=== PATIENT | female | born 1940 | race Caucasian/White ===

== ENCOUNTER 2017-09-12 11:28 | Inpatient (IN) | payer OTHER ==
[~2017-09-12] VITALS: Ht 177.8 cm; Wt 79.5 kg
[2017-09-12 12:23] LABS: BASOPHILS 0.5 % (0-2); EOSINOPHILS 0.9 % (0-7); HEMATOCRIT 45.8 % (36.0-48.0); IMMATURE GRANULOCYTES 0.3 % (0-5); LYMPHOCYTES 19.4 % (15-50); MCH 31.1 pg (26.0-34.0); MCHC 32.8 g/dL (31.0-37.0); MEAN PLATELET VOLUME 10.7 fL (7.4-10.4); MONOCYTES 8.9 % (2-11); PLATELET COUNT 193 10x3/uL (130-400); RBC 4.82 10x6/uL (4.00-5.40); RDW 13.8 % (11.5-14.5); WBC 5.9 10x3/uL (4.8-10.8)
[2017-09-12 12:31] LABS: INR 2.98 (0.85-1.17); PROTIME 30.2 SECONDS (11.6-15.0)
[2017-09-12 12:40] LABS: ALBUMIN 3.4 g/dL (3.4-5.0); ALKALINE PHOSPHATASE 65 U/L (46-116); ALT (SGPT) 24 U/L (10-68); CALC OSMOLALITY 276 mosm/kg (275-300); CALCIUM 9.4 mg/dL (8.5-10.1); CARBON DIOXIDE 23.2 mmol/L (21.0-32.0); CHLORIDE - SERUM 105 mmol/L (98-107); CREATININE - SERUM 0.7 mg/dL (0.6-1.3); GLUCOSE 102 mg/dL (74-106); PROTEIN - SERUM 6.8 g/dL (6.4-8.2); SODIUM 139 mmol/L (136-145); UREA NITROGEN 10 mg/dL (7-18); eGFR NON AFRICAN AMERICAN 86 mL/min (90-120)
[2017-09-12 12:52] LABS: APPEARANCE CLEAR (CLEAR); BILIRUBIN NEGATIVE (NEGATIVE); COLOR YELLOW (YELLOW); GLUCOSE NEGATIVE (NEGATIVE); KETONE MODERATE mg/dL (NEGATIVE); NITRITE NEGATIVE (NEGATIVE); PROTEIN NEGATIVE (NEGATIVE); UROBILINOGEN NORMAL (NORMAL)
[2017-09-12 12:54] LABS: BACTERIA FEW /hpf (NONE SEEN); HYALINE CAST RARE /lpf (NONE SEEN); MUCUS <1+ /lpf (NONE SEEN); RED CELLS - URINE OCC /hpf (0-5); YEAST OCC /hpf (NONE SEEN)
[2017-09-12 12:54] LABS: CREATINE KINASE 133 UL (21-215); LIPASE 100 U/L (73-393); MAGNESIUM - SERUM 1.4 mg/dL (1.8-2.4); PRO BNP 235 pg/mL (0-450)
[2017-09-12 12:55] LABS: TROPONIN-I < 0.017 ng/mL (0.000-0.060)
[2017-09-12] MEDS ORDERED: SYNTHROID137 MCG PO (22:35)
[2017-09-12] MEDS ORDERED: COUMADIN2.5 MG PO (22:36)
[2017-09-12] MEDS ORDERED: K-TAB10 MEQ PO (22:37)
[2017-09-12] MEDS ORDERED: PROBIOTIC1 EAC1 PO (22:38)
[2017-09-12] MEDS ORDERED: CYCLOBENZAPRINE10 MG PO (22:39)
[2017-09-12] MEDS ORDERED: CALCIUM 600 +1 EAC3 PO (22:40)
[2017-09-12 22:51] VITALS: BP 147/59; Ht 177.8 cm; Wt 79.5 kg
[2017-09-12 23:29] VITALS: BP 147/59
[2017-09-13] MEDS ORDERED: BETAPACE 120 M120 MG PO (00:42)
[2017-09-13 04:22] VITALS: BP 116/59
[2017-09-13 05:29] LABS: BASOPHILS 0.4 % (0-2); EOSINOPHILS 0.9 % (0-7); HEMATOCRIT 41.4 % (36.0-48.0); HEMOGLOBIN 13.6 g/dL (12-16); IMMATURE GRANULOCYTES 0.4 % (0-5); LYMPHOCYTES 19.9 % (15-50); MCH 30.9 pg (26.0-34.0); MCHC 32.9 g/dL (31.0-37.0); MCV 94.1 fL (80.0-100.0); MONOCYTES 11.7 % (2-11); NEUTROPHILS 66.7 % (40-80); PLATELET COUNT 159 10x3/uL (130-400); RDW 13.4 % (11.5-14.5); WBC 4.5 10x3/uL (4.8-10.8)
[2017-09-13 06:32] LABS: ALBUMIN 2.7 g/dL (3.4-5.0); ALKALINE PHOSPHATASE 58 U/L (46-116); ALT (SGPT) 23 U/L (10-68); CALCIUM 8.4 mg/dL (8.5-10.1); CHLORIDE - SERUM 111 mmol/L (98-107); CREATININE - SERUM 0.7 mg/dL (0.6-1.3); GLUCOSE 112 mg/dL (74-106); PROTEIN - SERUM 5.6 g/dL (6.4-8.2); SODIUM 144 mmol/L (136-145); eGFR NON AFRICAN AMERICAN 86 mL/min (90-120)
[2017-09-13 06:36] LABS: CALC OSMOLALITY 284 mosm/kg (275-300); POTASSIUM - SERUM 3.2 mmol/L (3.5-5.1); UREA NITROGEN 5 mg/dL (7-18)
[2017-09-13 09:30] VITALS: BP 134/71
[2017-09-13 10:53] LABS: ALBUMIN 2.7 g/dL (3.4-5.0); ALKALINE PHOSPHATASE 58 U/L (46-116); ALT (SGPT) 26 U/L (10-68); CALC OSMOLALITY 280 mosm/kg (275-300); CALCIUM 8.3 mg/dL (8.5-10.1); CARBON DIOXIDE 21.3 mmol/L (21.0-32.0); CHLORIDE - SERUM 111 mmol/L (98-107); CREATININE - SERUM 0.6 mg/dL (0.6-1.3); GLUCOSE 89 mg/dL (74-106); PROTEIN - SERUM 5.6 g/dL (6.4-8.2); SODIUM 143 mmol/L (136-145); UREA NITROGEN 5 mg/dL (7-18); eGFR NON AFRICAN AMERICAN > 90 mL/min (90-120)
[2017-09-13 10:58] LABS: POTASSIUM - SERUM 5.1 mmol/L (3.5-5.1)
[2017-09-13 13:40] VITALS: BP 139/71
[2017-09-13] MEDS ORDERED: FLAGYL500 MG PO (13:42)
[2017-09-13] MEDS ORDERED: CIPRO500 MG PO (13:42)
[2017-09-13 16:00] VITALS: BP 121/70
[2017-09-13 20:00] VITALS: BP 119/60
[2017-09-14 05:19] LABS: BASOPHILS 0.5 % (0-2); EOSINOPHILS 1.2 % (0-7); HEMATOCRIT 41.9 % (36.0-48.0); HEMOGLOBIN 13.6 g/dL (12-16); IMMATURE GRANULOCYTES 0.2 % (0-5); LYMPHOCYTES 20.8 % (15-50); MCH 30.5 pg (26.0-34.0); MCHC 32.5 g/dL (31.0-37.0); MCV 93.9 fL (80.0-100.0); MEAN PLATELET VOLUME 10.8 fL (7.4-10.4); MONOCYTES 10.1 % (2-11); NEUTROPHILS 67.2 % (40-80); PLATELET COUNT 176 10x3/uL (130-400); RBC 4.46 10x6/uL (4.00-5.40); RDW 13.7 % (11.5-14.5)
[2017-09-14 05:26] LABS: WBC 5.7 10x3/uL (4.8-10.8)
[2017-09-14 05:49] LABS: ALBUMIN 2.8 g/dL (3.4-5.0); ALKALINE PHOSPHATASE 58 U/L (46-116); ALT (SGPT) 23 U/L (10-68); CALC OSMOLALITY 282 mosm/kg (275-300); CALCIUM 8.3 mg/dL (8.5-10.1); CARBON DIOXIDE 21.9 mmol/L (21.0-32.0); CHLORIDE - SERUM 110 mmol/L (98-107); CREATININE - SERUM 0.7 mg/dL (0.6-1.3); GLUCOSE 85 mg/dL (74-106); PROTEIN - SERUM 5.2 g/dL (6.4-8.2); SODIUM 144 mmol/L (136-145); UREA NITROGEN 5 mg/dL (7-18); eGFR NON AFRICAN AMERICAN 86 mL/min (90-120)
[2017-09-14 05:52] LABS: POTASSIUM - SERUM 3.2 mmol/L (3.5-5.1)
[2017-09-14 09:27] VITALS: BP 149/71; BP 158/66
[2017-09-14 10:58] LABS: ALBUMIN 2.8 g/dL (3.4-5.0); ALKALINE PHOSPHATASE 61 U/L (46-116); ALT (SGPT) 24 U/L (10-68); CALC OSMOLALITY 281 mosm/kg (275-300); CALCIUM 8.5 mg/dL (8.5-10.1); CARBON DIOXIDE 22.5 mmol/L (21.0-32.0); CHLORIDE - SERUM 110 mmol/L (98-107); CREATININE - SERUM 0.6 mg/dL (0.6-1.3); GLUCOSE 120 mg/dL (74-106); PROTEIN - SERUM 5.7 g/dL (6.4-8.2); SODIUM 142 mmol/L (136-145); UREA NITROGEN 6 mg/dL (7-18); eGFR NON AFRICAN AMERICAN > 90 mL/min (90-120)
[2017-09-14 11:00] LABS: POTASSIUM - SERUM 4.9 mmol/L (3.5-5.1)
[2017-09-14] MEDS ORDERED: LOPERAMIDE HCL2 MG PO (11:57)
[2017-09-14] MEDS ORDERED: QUESTRAN PACK4 G/PKT PO (11:57)
[2017-09-14] MEDS ORDERED: FLAGYL500 MG PO (13:18)
[2017-09-14] MEDS ORDERED: CIPRO500 MG PO (13:18)
[2017-09-14 13:40] VITALS: BP 133/66
[2017-09-14 20:00] VITALS: BP 147/63
[2017-09-15 04:00] VITALS: BP 118/62
[2017-09-15 05:43] LABS: BASOPHILS 0.3 % (0-2); EOSINOPHILS 1.5 % (0-7); HEMATOCRIT 46.1 % (36.0-48.0); HEMOGLOBIN 15.1 g/dL (12-16); IMMATURE GRANULOCYTES 0.3 % (0-5); MCH 30.9 pg (26.0-34.0); MCHC 32.8 g/dL (31.0-37.0); MCV 94.3 fL (80.0-100.0); MEAN PLATELET VOLUME 11.1 fL (7.4-10.4); MONOCYTES 9.4 % (2-11); NEUTROPHILS 69.5 % (40-80); PLATELET COUNT 189 10x3/uL (130-400); RBC 4.89 10x6/uL (4.00-5.40); WBC 6.8 10x3/uL (4.8-10.8)
[2017-09-15 06:05] LABS: ALKALINE PHOSPHATASE 69 U/L (46-116); ALT (SGPT) 25 U/L (10-68); CALC OSMOLALITY 283 mosm/kg (275-300); CALCIUM 9.2 mg/dL (8.5-10.1); CARBON DIOXIDE 24.8 mmol/L (21.0-32.0); CHLORIDE - SERUM 108 mmol/L (98-107); CREATININE - SERUM 0.7 mg/dL (0.6-1.3); GLUCOSE 99 mg/dL (74-106); PROTEIN - SERUM 6.3 g/dL (6.4-8.2); SODIUM 144 mmol/L (136-145); UREA NITROGEN 5 mg/dL (7-18); eGFR NON AFRICAN AMERICAN 86 mL/min (90-120)
[2017-09-15 06:08] LABS: POTASSIUM - SERUM 4.1 mmol/L (3.5-5.1)
[2017-09-15 07:12] LABS: INR 4.35 (0.85-1.17); PROTIME 40.7 SECONDS (11.6-15.0)
[2017-09-15 09:23] VITALS: BP 117/68
[2017-09-15 14:42] VITALS: BP 115/68
== END 2017-09-15 16:44 | disposition home or self-care (01) | DRG 392 ==
LOC: D.ER 11:28 → D.EDHOLD 16:56 → OBSVTIME 16:56 → D.MS 18:14
PROVIDERS: Emergency Medicine; Family Medicine; Nurse Practitioner Family
DX: K52.9 Noninfective gastroenteritis and colitis, unspecified (principal); E86.0 Dehydration; E83.42 Hypomagnesemia; F41.9 Anxiety disorder, unspecified; I25.10 Atherosclerotic heart disease of native coronary artery without angina pectoris; E03.9 Hypothyroidism, unspecified; Z95.0 Presence of cardiac pacemaker; T37.8X5A Adverse effect of other specified systemic anti-infectives and antiparasitics, initial encounter; T45.515A Adverse effect of anticoagulants, initial encounter; I25.2 Old myocardial infarction; Z86.73 Personal history of transient ischemic attack (TIA), and cerebral infarction without residual deficits

== ENCOUNTER 2018-12-02 12:35 | Day surgery (SDC) | payer OTHER ==
[~2018-12-02] VITALS: Ht 177.8 cm; Wt 70.5 kg
[~2018-12-02 12:35] MED LIST: BETAPACE 120 M120 MG PO; CALCIUM 600 +1 EAC3 PO; CIPRO500 MG PO; COUMADIN2.5 MG PO; CYCLOBENZAPRINE10 MG PO; FLAGYL500 MG PO; K-TAB10 MEQ PO; LOPERAMIDE HCL2 MG PO; PROBIOTIC1 EAC1 PO; QUESTRAN PACK4 G/PKT PO; SYNTHROID137 MCG PO
[2018-12-02] MEDS ORDERED: NORVASC5 MG PO (13:24)
[2018-12-02] MEDS ORDERED: TRAMADOL HCL E100 M1 PO (13:24)
[2018-12-02] MEDS ORDERED: ZOLOFT100 MG PO (13:24)
[2018-12-02] MEDS ORDERED: WELLBUTRIN SR150 MG PO (13:25)
[2018-12-02 13:26] LABS: CALC OSMOLALITY 282 mosm/kg (275-300); CALCIUM 8.8 mg/dL (8.5-10.1); CARBON DIOXIDE 29.3 mmol/L (21.0-32.0); CHLORIDE - SERUM 107 mmol/L (98-107); CREATININE - SERUM 0.7 mg/dL (0.6-1.3); GLUCOSE 92 mg/dL (74-106); POTASSIUM - SERUM 3.8 mmol/L (3.5-5.1); SODIUM 142 mmol/L (136-145); UREA NITROGEN 13 mg/dL (7-18); eGFR NON AFRICAN AMERICAN 86 mL/min (90-120)
[2018-12-02] MEDS ORDERED: BACLOFEN10 MG PO (13:26)
[2018-12-02] MEDS ORDERED: GABAPENTIN100 MG PO (13:28)
[2018-12-02] MEDS ORDERED: HYDROCODON-ACE1 EA10 PO (13:28)
[2018-12-02 13:33] VITALS: BP 125/79; Ht 177.8 cm; Wt 70.5 kg
[2018-12-02 13:54] LABS: HEMATOCRIT 40.8 % (36.0-48.0); HEMOGLOBIN 13.6 g/dL (12-16); MCH 30.9 pg (26.0-34.0); MCHC 33.3 g/dL (31.0-37.0); MCV 92.7 fL (80.0-100.0); MEAN PLATELET VOLUME 9.6 fL (7.4-10.4); RBC 4.4 10x6/uL (4.00-5.40); WBC 4.8 10x3/uL (4.8-10.8)
--- NOTE | 2018-12-02 14:02 | NUR ---
[employer] SPECIMEN FOR TRANSPLANT [id number]
--- NOTE | 2018-12-02 14:44 | NUR ---
1440 DR. DONYA PRYOR.
--- NOTE | 2018-12-02 15:31 | NUR ---
1530 RELEASED IN WC WITH SPOUSE.
--- NOTE | 2018-12-02 17:26 | OP ---
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 SCOPE: [employer] video pediatric colonoscope. MEDICATIONS: Propofol 150 mg IV per anesthesia. ESTIMATED BLOOD LOSS: None. COMPLICATIONS: None. FINDINGS: Informed consent was given. The patient was made comfortable with the above medication. After reaching an adequate level of sedation by slow IV push, the patient was placed on her left side. The endoscope was advanced under direct visualization through the mouth down to the jejunum. The upper endoscopy was completely normal down to the jejunum. Once the jejunum was reached 30 mL of [employer] stool was instilled into the small intestine followed by a flush with 50 mL of sterile water. The endoscope was then withdrawn from the patient. The patient tolerated the procedure well and there were no complications. 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 PLAN AND RECOMMENDATIONS: 1. Discharge home when recovery parameters are met. 2. Continue current diet and current medications. 3. Notify the GI clinic if symptoms worsen or fail to improve. TRANSINT:[id number] Voice Confirmation ID: [id number] DOCUMENT ID: [id number] JEAN NAQVI DO at 1726 CC: [id number] DICTATION DATE: 12/02/18 1429 FURNACE RELINER: 12/02/18 1506 [facility] 12/02/[address] [id number]
== END 2018-12-02 15:30 | disposition home or self-care (01) ==
LOC: D.OPS 12:35
PROVIDERS: Anesthesiology; ATTEND Internal Medicine Gastroenterology
DX: K58.0 Irritable bowel syndrome with diarrhea (principal); R10.9 Unspecified abdominal pain; Z01.812 Encounter for preprocedural laboratory examination